=== PATIENT | male | born 1950 | race Caucasian/White ===

== ENCOUNTER → 2023-12-21 07:19 | Day surgery (SDC) | payer MEDICARE, SELFPAY ==
[2023-12-21 09:27] LABS: Glucose - Point of Care 149 mg/dl (70-99)
== END ==
LOC: GI 07:19
PROVIDERS: ATTENDING PHYSICIAN Specialist
DX: R93.3 Abnormal findings on diagnostic imaging of other parts of digestive tract (principal); K63.89 Other specified diseases of intestine; D12.3 Benign neoplasm of transverse colon; K63.5 Polyp of colon; Z85.038 Personal history of other malignant neoplasm of large intestine; Z86.010 Personal history of colon polyps
CPT/HCPCS: 45380; 88305; 82962

== ENCOUNTER 2024-02-20 06:31 | Emergency (ER) | payer MEDICARE, SELFPAY ==
[2024-02-20 06:35] VITALS: BP 183/114
--- NOTE | 2024-02-20 07:00 | ED.GENMED ---
History of Present Illness
General
Chief Complaint: Skin Problem
Source: patient
Time Seen by Provider: 02/20/24 06:48
History of Present Illness
History of Present Illness:
73-year-old male presents to the emergency room complaining of pain, redness base of his right hand. Pain began 2 days ago. Seems to have increased somewhat in intensity. No fever or chills. Patient cannot recall any injury or potential foreign
body. Patient is right-hand dominant
Past History
Past History
ED Past Medical History: HTN and Hypercholesterolemia
ED Past Surgical History: Bowel resection (colon cancer) and Orthopedic
Social History
Tobacco: Non-smoker
Alcohol: Occasional
Drug: None
Personal:
Living: with family
Phy Exam
Physical Exam
Physical Exam:
General: Awake, Alert, Oriented X3. No acute distress.
Vitals: unremarkable
Head: Atraumatic
Eyes: Pupils equal, EOMI
Throat: Airway intact, no exudates
Neuro: Nonfocal
Skin: Warm, dry, no rash
Extremities: pulses equal b/l, no edema. Erythema noted base of palm. There is a distinct area of swelling in the center of the lower palm which appears to be the point of max tenderness. No fluctuance to suggest abscess. Wrist itself is not
tender nor is there pain with rom in the wrist itself. Pain is increased in the palm with movement.
Sepsis
Sepsis Screening
Sepsis Assessment: Sepsis Ruled Out
Sepsis Screen
Sepsis Screen: Sepsis Ruled Out
Date: 02/20/24
Time: 14:25
Course
Orders/Labs/Results
Orders:
Orders
02/20/24 06:59
Hand, Right 3 View [CR Hand - Right Min 3 Views] Urgent
Comment:
Reason For Exam: pain lower palm
02/20/24 07:31
Cephalexin Monohydrate [Keflex] 500 mg PO NOW STA
Vital Signs
Initial and Last Documented VS:
Initial Vital Signs
Temp Pulse Resp BP Pulse Ox
98.7 F 87 17 183/114 100
02/20/24 06:35 02/20/24 06:35 02/20/24 06:35 02/20/24 06:35 02/20/24 06:35
Last Documented Vital Signs
Temp Pulse Resp BP Pulse Ox
98.7 F 81 15 156/110 100
02/20/24 06:35 02/20/24 07:22 02/20/24 07:22 02/20/24 07:22 02/20/24 06:35
MDM/Problems Addressed
Differential Diagnosis Includes:
Cellulitis, abscess, local irritation, retained foreign body
MDM/Problems Addressed:
X-ray shows no acute abnormality. No foreign body noted. Suspect small area of infection or irritation. Will cover with antibiotics given his use of some immunosuppressive medication. Will have patient follow-up with hand surgery as an
outpatient. He is instructed return if he feels like his symptoms are getting worse.
*Radiology
Radiology exam reviewed: preliminary read by ED provider (No acute abnormalities noted on my review of the patient's chest x-ray.) and radiology read reviewed
*Pulse Oximetry
Patient hypoxic: no
*Critical Care Note
Total Time (30-74mins, 75-104mins- exclusive of procedures): Not Applicable
ED Attending Note
-
Portions of this chart may have been created with voice recognition software.� Occasional wrong word or��sound alike� substitutions may have occurred due to the inherent limitations of voice recognition software.
Discharge Plan
Departure
Patient Disposition: Home (Routine Discharge)
Date of Disposition: 02/20/24
Time of Disposition: 07:30
Patient with high blood pressure during this ER visit?: Yes
Condition: Good
Discharge Problem:
Cellulitis of hand, right
Instructions: Cellulitis (Skin Infection), Adult (DC), BLOOD PRESSURE
Prescriptions:
New
cephalexin 500 mg capsule
500 mg PO QID 7 Days Qty: 28 0RF
No Action
carvedilol 6.25 mg Tablet
6.25 mg PO BID
pravastatin 40 mg Tablet
40 mg PO HS
acetaminophen [Acetaminophen Extra Strength] 500 mg tablet
1,000 mg PO Q6H Qty: 60 0RF
Rx Instructions:
DO NOT exceed >4000 mg daily.
lisinopril-hydrochlorothiazide 20-12.5 mg Tablet
1 tab PO HS Qty: 0 0RF
Rx Instructions:
HOLD IF systolic blood pressure <130 while on Oxycodone.
nifedipine 60 mg Tablet Extended Release 24hr
60 mg PO BID Qty: 0 0RF
Rx Instructions:
HOLD IF systolic blood pressure <130 while on Oxycodone.
metformin 750 mg Tablet Extended Release 24 Hr
750 mg PO DAILY
dapagliflozin propanediol [Farxiga] 10 mg Tablet
10 mg PO DAILY
Referrals:
Srinivasa Lares MD [Active] -
Interventions
Interventions:
*Risk Screen - Suicide Last Done: 02/20/24 06:35
*Neglect/Abuse Screening Last Done: 02/20/24 07:23
ED- Fall Risk Assessment Last Done: 02/20/24 07:43
*ED COVID-19 Vaccine History Last Done: 02/20/24 07:22
*Nursing Disposition Last Done: 02/20/24 07:43
ED-Skin Assessment Last Done: 02/20/24 07:23
Discharge Date and Time
Discharge Date/Time: 02/20/24 07:44
Print Language: DOMINICAN
[2024-02-20 07:22] VITALS: BP 156/110; BMI 29.8
[2024-02-20] MEDS: KEFLEX 500 MG PO (07:38)
== END 2024-02-20 07:44 | disposition home or self-care (01) ==
LOC: EMR 06:31
PROVIDERS: EMERGENCY PHYSICIAN Emergency Medicine; FAMILY PHYSICIAN Family Medicine
DX: L03.113 Cellulitis of right upper limb (principal); M79.641 Pain in right hand; I10 Essential (primary) hypertension; E78.00 Pure hypercholesterolemia, unspecified; Z85.038 Personal history of other malignant neoplasm of large intestine
CPT/HCPCS: 99283; 73130

== ENCOUNTER 2024-12-30 06:24 | Day surgery (SDC) | payer MEDICARE, SELFPAY ==
[2024-12-30 07:15] LABS: Glucose - Point of Care 164 mg/dl (70-99)
== END 2024-12-30 08:56 | disposition home or self-care (01) ==
LOC: GI 06:24
PROVIDERS: ATTENDING PHYSICIAN Specialist
DX: Z12.11 Encounter for screening for malignant neoplasm of colon (principal); D12.3 Benign neoplasm of transverse colon; D12.4 Benign neoplasm of descending colon; D12.6 Benign neoplasm of colon, unspecified; K63.5 Polyp of colon; Z85.038 Personal history of other malignant neoplasm of large intestine; Z98.0 Intestinal bypass and anastomosis status
CPT/HCPCS: 45385; 45380; 82962; 88305

== ENCOUNTER 2025-01-01 10:43 | Emergency (ER) | payer MEDICARE, SELFPAY ==
[2025-01-01 10:47] VITALS: BP 136/82
[2025-01-01 11:16] VITALS: BMI 29.8
--- NOTE | 2025-01-01 11:53 | ED.GENMED ---
History of Present Illness
General
Chief Complaint: Musculo-Skeletal Complaint
Time Seen by Provider: 01/01/25 11:05
History of Present Illness
History of Present Illness:
74-year-old male presents to the emergency department for evaluation of left ankle swelling and mild discomfort for the past several days. Denies any trauma. States that he has had gout in the left foot but never had it in the left ankle, does not
feel similar. No fevers or chills.
Past History
Past History
ED Past Medical History: HTN and Hypercholesterolemia
ED Past Surgical History: Bowel resection (colon cancer) and Orthopedic
Social History
Tobacco: Non-smoker
Alcohol: Occasional
Drug: None
Personal:
Living: with family
Review of Systems
Review of Systems
Allergies reviewed?: Yes
All Other Systems: ROS reviewed and negative except as documented in HPI and ROS
Phy Exam
Physical Exam
Physical Exam:
GEN: Well appearing, NAD, WDWN
HEENT: Oral mucosa moist, no scleral icterus
Cardiac: Regular rate
Lung: No respiratory distress, no tachypnea
MSK: No gross deformity or injuries. Moderate edema of the left calf from midshaft through to the ankle, no joint effusion, no pain with passive range of motion of the left ankle, left dorsalis pedis pulse is strong
Skin: Good color, no pallor or jaundice, no rashes
Neuro: AO x3, moves all extremities freely
Psych: Calm, cooperative
Course
Orders/Labs/Results
Orders:
Orders
01/01/25 10:50
Ankle, left 3 view CR [CR Ankle - Left Min 3 Views ] Urgent
Comment:
Reason For Exam: pain, swelling, no injury
01/01/25 11:14
Venous Doppler Lwr Ext Left [US Periph Venous LOWER Ext LT] Urgent
Comment:
Reason For Exam: LLE edema
Vital Signs
Initial and Last Documented VS:
Initial Vital Signs
Temp Pulse Resp BP Pulse Ox
98.6 F 85 22 136/82 96
01/01/25 10:47 01/01/25 10:47 01/01/25 10:47 01/01/25 10:47 01/01/25 10:47
Last Documented Vital Signs
Temp Pulse Resp BP Pulse Ox
98.6 F 85 22 136/82 96
01/01/25 10:47 01/01/25 10:47 01/01/25 10:47 01/01/25 10:47 01/01/25 11:56
MDM/Problems Addressed
MDM/Problems Addressed:
X-rays unremarkable, ultrasound with no evidence for DVT. Doubt intra-articular pathology given lack of pain with passive motion in the associated soft tissue swelling. Recommend supportive measures with elevation and compression, would advise
against any NSAIDs due to history of G6PD
*Pulse Oximetry
SaO2: 96
Oxygen Mode of Delivery: Room air
Patient hypoxic: no
*Critical Care Note
Total Time (30-74mins, 75-104mins- exclusive of procedures): Not Applicable
ED Attending Note
-
Portions of this chart may have been created with voice recognition software.� Occasional wrong word or��sound alike� substitutions may have occurred due to the inherent limitations of voice recognition software.
Discharge Plan
Departure
Patient Disposition: Home (Routine Discharge)
Date of Disposition: 01/01/25
Time of Disposition: 11:53
Patient with high blood pressure during this ER visit?: No
Discharge Problem:
Leg edema, left
Instructions: Swelling
Prescriptions:
No Action
carvedilol 6.25 mg Tablet
6.25 mg PO BID
pravastatin 40 mg Tablet
40 mg PO HS
acetaminophen [Acetaminophen Extra Strength] 500 mg tablet
1,000 mg PO Q6H Qty: 60 0RF
Rx Instructions:
DO NOT exceed >4000 mg daily.
lisinopril-hydrochlorothiazide 20-12.5 mg Tablet
1 tab PO HS Qty: 0 0RF
Rx Instructions:
HOLD IF systolic blood pressure <130 while on Oxycodone.
nifedipine 60 mg Tablet Extended Release 24hr
60 mg PO BID Qty: 0 0RF
Rx Instructions:
HOLD IF systolic blood pressure <130 while on Oxycodone.
metformin 750 mg Tablet Extended Release 24 Hr
750 mg PO DAILY
dapagliflozin propanediol [Farxiga] 10 mg Tablet
10 mg PO DAILY
cephalexin 500 mg capsule
500 mg PO QID 7 Days Qty: 28 0RF
Activity Restrictions/Additional Instructions:
Elevate the leg and use a compression stockings to reduce swelling
Interventions
Interventions:
*Risk Screen - Suicide Last Done: 01/01/25 10:47
*General Assessment Last Done: 01/01/25 10:47
*Neglect/Abuse Screening Last Done: 01/01/25 10:47
*ED- Fall Risk Assessment Last Done: 01/01/25 11:16
*ED COVID-19 Vaccine History Last Done: 01/01/25 11:16
*Nursing Disposition Last Done: 01/01/25 12:07
ED-Musculoskeletal Assessment Last Done: 01/01/25 11:18
Discharge Date and Time
Discharge Date/Time: 01/01/25 12:23
Print Language: AMHARIC
== END 2025-01-01 12:23 | disposition home or self-care (01) ==
LOC: EMR 10:43
PROVIDERS: EMERGENCY PHYSICIAN Emergency Medicine; FAMILY PHYSICIAN Family Medicine
DX: R60.0 Localized edema (principal); I10 Essential (primary) hypertension; E78.00 Pure hypercholesterolemia, unspecified; Z85.038 Personal history of other malignant neoplasm of large intestine
CPT/HCPCS: 99284; 73610; 93971

== ENCOUNTER 2025-01-03 08:58 | Emergency (ER) | payer MEDICARE, SELFPAY ==
[2025-01-03 09:00] VITALS: BP 123/76
[2025-01-03 09:25] VITALS: BMI 30.6
[2025-01-03 10:02] LABS: Hematocrit 42.1 % (39.0-52.0); Hemoglobin 14.6 g/dL (13.0-18.0); Mean Corp Hgb Conc. 34.7 g/dL (33.0-37.0); Mean Corpuscular Volume 91.1 fL (80.0-94.0); Platelet Count 242 10^3/uL (130-400); Red Cell Dist. Width 11.0 % (11.5-14.5)
[2025-01-03 10:24] LABS: Blood Urea Nitrogen 36 mg/dl (9-20); Calcium 9.3 mg/dl (8.4-10.2); Carbon Dioxide 24 mmol/L (22-30); Chloride 105 mmol/L (98-107); Estimated Creatinine Clearance 55 ml/min; Glucose 294 mg/dl (70-99); Potassium 3.8 mmol/L (3.5-5.1); Sodium 141 mmol/L (135-145); eGFR 53.07
--- NOTE | 2025-01-03 10:28 | ED.GENMED ---
History of Present Illness
General
Chief Complaint: Swelling
Time Seen by Provider: 01/03/25 09:27
History of Present Illness
History of Present Illness:
74-year-old male returns to the emergency department for evaluation of continued left leg edema. I saw this patient 2 days ago for the same symptoms at which time a Doppler ultrasound of the left leg and x-ray of the left ankle were grossly
unremarkable. He has trialed compression and elevation without relief. States even when elevated the edema does not seem to improve. He denies any associated fevers or chills. Has mild pain when ambulating but it is quite minimal.
Past History
Past History
ED Past Medical History: HTN and Hypercholesterolemia
ED Past Surgical History: Bowel resection (colon cancer) and Orthopedic
Social History
Tobacco: Non-smoker
Alcohol: Occasional
Drug: None
Personal:
Living: with family
Review of Systems
Review of Systems
Allergies reviewed?: Yes
All Other Systems: ROS reviewed and negative except as documented in HPI and ROS
Phy Exam
Physical Exam
Physical Exam:
GEN: Well appearing, NAD, WDWN
HEENT: Oral mucosa moist, no scleral icterus
Cardiac: Regular rate
Lung: No respiratory distress, no tachypnea
MSK: Diffuse edema of the left lower extremity from the mid calf down, there is no pain with passive range of motion of the left ankle, left dorsalis pedis pulse is strong
Skin: Good color, no pallor or jaundice, no rashes
Neuro: AO x3, moves all extremities freely
Psych: Calm, cooperative
Scores
Heart Failure Risk
Heart Failure Risk Score: Not Applicable
Course
Orders/Labs/Results
Orders:
Orders
01/03/25 09:48
Basic Metabolic Panel Urgent
01/03/25 09:49
Complete Blood Count/No Diff Urgent
Abnormal Lab Results
01/03/25 01/03/25
09:48 09:49
WBC 11.9 H 10^3/uL
(4.8-10.8)
RBC 4.62 L 10^6/uL
(4.70-6.10)
MCH 31.6 H pg
(27.0-31.0)
RDW 11.0 L %
(11.5-14.5)
BUN 36 H mg/dl
(9-20)
Creatinine 1.4 H mg/dL
(0.7-1.3)
Glucose 294 H mg/dl
(70-99)
01/03/25 09:49
01/03/25 09:48
Vital Signs
Initial and Last Documented VS:
Initial Vital Signs
Temp Pulse Resp BP Pulse Ox
98.1 F 80 19 123/76 97
01/03/25 09:00 01/03/25 09:00 01/03/25 09:00 01/03/25 09:00 01/03/25 09:00
Last Documented Vital Signs
Temp Pulse Resp BP Pulse Ox
98.1 F 80 19 123/76 97
01/03/25 09:00 01/03/25 09:00 01/03/25 09:00 01/03/25 09:00 01/03/25 10:34
MDM/Problems Addressed
MDM/Problems Addressed:
Limited bedside ultrasound performed myself shows diffuse soft tissue swelling with no evidence for left ankle joint effusion thus no arthrocentesis was pursued. Patient had labs obtained to evaluate renal function however given his history of G6PD
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 Sulfa diuretics and thiazide diuretics are known to cause increased oxidative stress that would provoke a G6PD related hemolytic anemia, and while
spironolactone may be safe in the setting his chronic kidney disease makes the possibility for severe hyperkalemia to great to risk at this time. Particularly given that his symptoms are not profoundly limiting we will hold off on treatment for the
time being
*Pulse Oximetry
SaO2: 97
Oxygen Mode of Delivery: Room air
Patient hypoxic: no
*Critical Care Note
Total Time (30-74mins, 75-104mins- exclusive of procedures): Not Applicable
ED Attending Note
-
Portions of this chart may have been created with voice recognition software.� Occasional wrong word or��sound alike� substitutions may have occurred due to the inherent limitations of voice recognition software.
Discharge Plan
Departure
Patient Disposition: Home (Routine Discharge)
Date of Disposition: 01/03/25
Time of Disposition: 10:28
Patient with high blood pressure during this ER visit?: No
Discharge Problem:
Leg edema, left
Instructions: Dependent Edema (DC)
Prescriptions:
No Action
carvedilol 6.25 mg Tablet
6.25 mg PO BID
pravastatin 40 mg Tablet
40 mg PO HS
acetaminophen [Acetaminophen Extra Strength] 500 mg tablet
1,000 mg PO Q6H Qty: 60 0RF
Rx Instructions:
DO NOT exceed >4000 mg daily.
lisinopril-hydrochlorothiazide 20-12.5 mg Tablet
1 tab PO HS Qty: 0 0RF
Rx Instructions:
HOLD IF systolic blood pressure <130 while on Oxycodone.
nifedipine 60 mg Tablet Extended Release 24hr
60 mg PO BID Qty: 0 0RF
Rx Instructions:
HOLD IF systolic blood pressure <130 while on Oxycodone.
metformin 750 mg Tablet Extended Release 24 Hr
750 mg PO DAILY
dapagliflozin propanediol [Farxiga] 10 mg Tablet
10 mg PO DAILY
cephalexin 500 mg capsule
500 mg PO QID 7 Days Qty: 28 0RF
Referrals:
Lubna Llanes DO [Family Provider, Family Practice]
Activity Restrictions/Additional Instructions:
Due to your G6PD, the majority of diuretic medications are contraindicated as they will cause hemolytic anemia
Spironolactone is a potential option, however this could cause severely elevated potassium levels given your chronic kidney disease.
Please contact your oncologist to discuss the appropriate treatment regimen
Interventions
Interventions:
*Risk Screen - Suicide Last Done: 01/03/25 09:00
*General Assessment Last Done: 01/03/25 09:00
*Neglect/Abuse Screening Last Done: 01/03/25 09:25
*ED- Fall Risk Assessment Last Done: 01/03/25 09:25
*ED COVID-19 Vaccine History Last Done: 01/03/25 09:25
*Nursing Disposition Last Done: 01/03/25 10:55
ED- Cardiac Assessment Last Done: 01/03/25 09:25
ED- Pulmonary Assessment Last Done: 01/03/25 09:25
ED-Skin Assessment Last Done: 01/03/25 09:25
Discharge Date and Time
Discharge Date/Time: 01/03/25 10:57
Print Language: PORTUGUESE
== END 2025-01-03 10:57 | disposition home or self-care (01) ==
LOC: EMR 08:58
PROVIDERS: Physician Assistant; EMERGENCY PHYSICIAN Emergency Medicine; FAMILY PHYSICIAN Family Medicine
DX: R60.0 Localized edema (principal); I10 Essential (primary) hypertension; E78.00 Pure hypercholesterolemia, unspecified; D75.A Glucose-6-phosphate dehydrogenase (G6PD) deficiency without anemia; Z85.038 Personal history of other malignant neoplasm of large intestine
CPT/HCPCS: 99283; 80048; 85027